=== PATIENT | male | born 1965 | race American Indian/Alaskan Native ===

== ENCOUNTER 2017-11-01 11:22 | Emergency (ER) | payer BC, OTHER ==
--- NOTE | 2017-11-01 12:20 | EDM.PDOC ---
ED HPI GENERAL MEDICAL PROBLEM - General Chief Complaint: Back Pain or Injury Stated Complaint: BACK PAIN AND LEG WEAKNESS Time Seen by Provider: 11/01/17 11:49 Source of Information: Reports: Patient History Limitations: Reports: No Limitations - History of Present Illness INITIAL COMMENTS - FREE TEXT/NARRATIVE: 52-year-old male arrives via private vehicle for evaluation and treatment of several different complaints. patient reports edema to the bilateral lower legs. States the right is worse than the left. He is on Lasix but takes them intermittently when it is not interfering with life events. He reports a couple days ago his calves were tight. He states that his pants are much tighter than normal. He was seen in the [facility] yesterday. Given Lasix and potassium and monitor the ER and sent home. He took 80 mg of Lasix on Wednesday. He denies any chest pain or shortness of breath. Hospitalized about one year ago as for heart failure. Reports he frequently has exacerbations of heart failure and low potassium. Patient reports he's had chronic back pain for at least the last 17 years. He has a history of back spasms. He states this pain is different. Reports that it starts in his hips and travels into his buttocks do his low back and then up his back. He is reporting some numbness and tingling in his toes and the balls of his feet. He denies any saddle anesthesia. Reports that over the weekend he has developed bowel incontinence, one episode Wednesday and one episode this am. Reports he has had urinary incontinance for years. Always has the urge to urinate. He denies any new or recent trauma. Initial injury to his low back was falling off his horse about 17 years ago. He states that his legs feel weak and he cannot lift them. He was previously on tramadol for his pain. Reports pain with walking his legs and his back. Lower Back Pain Score (Numeric/FACES): 9 - Related Data Allergies Allergy/AdvReac Type Severity Reaction Status Date / Time Penicillins Allergy Cannot Verified 11/01/17 11:37 Remember Home Meds: Home Meds Acetaminophen/HYDROcodone [[place] 325-5 MG] 1 tab PO Q6H PRN #20 tablet 11/01/17 [Rx] Past Medical History HEENT History: Reports: Impaired Vision Cardiovascular History: Reports: CO, Stents Musculoskeletal History: Reports: Arthritis Social & Family History - Tobacco Use Smoking Status *Q: Current Every Day Smoker Years of Tobacco use: 25 Packs/Tins Daily: 0.1 - Caffeine Use Caffeine Use: Reports: Coffee - Recreational Drug Use Recreational Drug Use: No ED ROS GENERAL - Review of Systems Review Of Systems: See Below Respiratory: Denies: Shortness of Breath Cardiovascular: Reports: Edema. Denies: Chest Pain GI/Abdominal: Reports: Stool Incontinence. Denies: Abdominal Pain : Reports: Incontinence Musculoskeletal: Reports: Back Pain, Leg Pain (bilateral) Neurological: Reports: Numbness (bilateral toes), Tingling (bilateral toes), Difficulty Walking (due to pain in legs and back), Weakness (bilateral leg weakness) ED EXAM,LOWER BACK PAIN/INJURY - Physical Exam Exam: See Below Exam Limited By: No Limitations General Appearance: Alert, WD/WN, No Apparent Distress, Obese Ears: Normal External Exam Nose: Normal Inspection Throat/Mouth: Normal Inspection, Normal Voice, No Airway Compromise Respiratory/Chest: No Respiratory Distress, Lungs Clear, Normal Breath Sounds Cardiovascular: Normal Peripheral Pulses, Regular Rate, Rhythm, No Murmur Rectal (Males) Exam: Normal Exam, Normal Rectal Tone. No: Hemorrhoids Back Exam: Normal Inspection, Vertebral Tenderness (L5/sacrum). No: Muscle Spasm, Paraspinal Tenderness Extremities: Normal Inspection, Normal Range of Motion (able to internally and externally rotate hips; able to flex hips to about 130 degrees), Other ( bilateral nonpitting edema 2+) Neurological: Alert, Normal Mood/Affect, Normal Dorsiflexion, Normal Plantar Flexion, Other (hip flexion 4.5/5 bilaterally, dorsiflexion and plantar flexion 5/5 bilaterally). No: Straight Leg Raise (L), Straight Leg Raise (R), Saddle Anesthesia Psychiatric: Normal Affect, Normal Mood Skin Exam: Warm, Dry, Normal Color Course - Vital Signs Last Recorded V/S: Last Vital Signs Temp 98.0 F 11/01/17 11:32 Pulse 89 11/01/17 11:32 Resp 16 11/01/17 11:32 BP 125/78 11/01/17 11:32 Pulse Ox - Orders/Labs/Meds Labs: Laboratory Tests 11/01/17 11/01/17 11/01/17 Range/Units 12:29 12:29 12:29 WBC 7.22 (4.23-9.07) K/mm3 RBC 4.44 L (4.63-6.08) M/mm3 Hgb 13.6 L (13.7-17.5) gm/L Hct 39.9 L (40.1-51.0) % MCV 89.9 (79.0-92.2) fl MCH 30.6 (25.7-32.2) pg MCHC 34.1 (32.2-35.5) g/dl RDW Std Deviation 46.2 H (35.1-43.9) fL Plt Count 173 (163-337) K/mm3 MPV 10.1 (9.4-12.3) fl Neut % (Auto) 58.8 (34.0-67.9) % Lymph % (Auto) 30.5 (21.8-53.1) % [place] % (Auto) 7.3 (5.3-12.2) % Eos % (Auto) 2.5 (0.8-7.0) Baso % (Auto) 0.6 (0.1-1.2) % Neut # (Auto) 4.25 (1.78-5.38) K/mm3 Lymph # (Auto) 2.20 (1.32-3.57) K/mm3 [place] # (Auto) 0.53 (0.30-0.82) K/mm3 Eos # (Auto) 0.18 (0.04-0.54) K/mm3 Baso # (Auto) 0.04 (0.01-0.08) K/mm3 Sodium 137 (136-145) mEq/L Potassium 2.7 L (3.5-5.1) mEq/L Chloride 97 L (98-107) mEq/L Carbon Dioxide 30 (21-32) mEq/L Anion Gap 12.7 (5-15) BUN 23 H (7-18) mg/dL Creatinine 1.1 (0.7-1.3) mg/dL Est Cr Clr Drug Dosing TNP Estimated GFR (MDRD) > 60 (>60) mL/min BUN/Creatinine Ratio 20.9 H (14-18) Glucose 160 H (74-106) mg/dL Calcium 9.3 (8.5-10.1) mg/dL Total Bilirubin 1.1 H (0.2-1.0) mg/dL AST 40 H (15-37) U/L ALT 53 (16-63) U/L Alkaline Phosphatase 88 (46-116) U/L NT-Pro-B Natriuret Pep 19 (0-125) pg/mL Total Protein 7.7 (6.4-8.2) g/dl Albumin 3.7 (3.4-5.0) g/dl Globulin 4.0 gm/dL Albumin/Globulin Ratio 0.9 L (1-2) Meds: Medications Discontinued Medications Generic Name Dose Route Start Last Admin Trade Name Freq PRN Reason Stop Dose Admin Potassium Chloride 40 meq 11/01/17 13:41 11/01/17 14:04 Klor-Con M20 PO 11/01/17 13:42 40 meq ONETIME ONE Administration - Radiology Interpretation Free Text/Narrative:: Chest: Portable view of the chest was obtained. Comparison: No prior study. Minimal scar or atelectasis seen within the left base. Lungs otherwise are clear. Heart size is normal. Tortuous thoracic aorta is seen. Degenerative endplate spurring is scattered within the spine. Impression: 1. Incidental findings. Nothing acute is seen Bilateral lower extremity deep venous ultrasound: Duplex and color flow imaging was obtained of the right and left common femoral, proximal greater saphenous, superficial femoral, popliteal, posterior tibial and peroneal veins. Findings: Normal phasic flow, augmentation and compression is seen. Impression: 1. No evidence of deep venous thrombosis within either the right or left lower extremity. - Re-Assessments/Exams Free Text/Narrative Re-Assessment/Exam: 11/01/17 14:29 Reviewed the labs and imaging with the patient. Low back pain is chronic. No saddle anesthesia. Good rectal tone. Cauda equina syndrome felt to be very unlikely. We will get us MRI of his low back as an outpatient. Order has been placed and he can follow-up with his primary care provider for results of these. He should also follow up with his primary care to recheck his potassium. Discharge instructions as documented. Departure - Departure Time of Disposition: 14:34 Disposition: Home, Self-Care 01 Condition: Fair Clinical Impression: Low back pain, Hypokalemia, Edema - Discharge Information *PRESCRIPTION DRUG MONITORING PROGRAM REVIEWED*: Yes (1 Rx last year, 1 Rx for tramadol 50mg #01 July 2017) *COPY OF PRESCRIPTION DRUG MONITORING REPORT IN PATIENT NEO: No Prescriptions: Acetaminophen/HYDROcodone [[place] 325-5 MG] 1 tab PO Q6H PRN #20 tablet PRN Reason: Pain Instructions: Edema, Hypokalemia Referrals: PCP,Not In Area [Primary Care Provider] - Asha Alex NP [Ordering Only Provider] - Forms: ED Department Discharge Additional Instructions: [id number] ibuprofen as needed for pain relief. Do not make take more than 3200 mg of ibuprofen from all sources in 1 day. For pain not relieved by ibuprofen you may take [place] one or 2 tabs every 6 hours. [place] as habit-forming , take as few of these as needed to control your pain. Do not drive or operate machinery within 12 hours of taking [place]. An outpatient order has been placed for you to have an MRI of your lumbar spine Please call [phone] and ask for the radiology department to schedule this. Follow-up with your primary care provider after the MRI to review results as well as repeat your potassium. Continue taking your potassium pills as prescribed. Also recommend increasing potassium in your diet. Recommend high potassium foods such as bananas, avocados , almonds, nuts and beans. Continue taking the gabapentin as prescribed. Please return to the ER should your symptoms change or worsen.
[2017-11-01] MEDS ORDERED: Potassium Chloride 20 MEQ Tab.ER PO ONE (13:41)
--- NOTE | 2017-11-01 14:19 | US ---
Bilateral lower extremity deep venous ultrasound: Duplex and color flow imaging was obtained of the right and left common femoral, proximal greater saphenous, superficial femoral, popliteal, posterior tibial and peroneal veins. Findings: Normal phasic flow, augmentation and compression is seen. Impression: 1. No evidence of deep venous thrombosis within either the right or left lower extremity. Diagnostic code #1
--- NOTE | 2017-11-01 14:51 | CR ---
Chest: Portable view of the chest was obtained. Comparison: No prior study. Minimal scar or atelectasis seen within the left base. Lungs otherwise are clear. Heart size is normal. Tortuous thoracic aorta is seen. Degenerative endplate spurring is scattered within the spine. Impression: 1. Incidental findings. Nothing acute is seen. Diagnostic code #2
== END 2017-11-01 14:50 | disposition home or self-care (01) ==
LOC: JD.ED 11:22
DX: M54.5 Low back pain (principal); E87.6 Hypokalemia; R60.0 Localized edema; F17.210 Nicotine dependence, cigarettes, uncomplicated
CPT/HCPCS: 36415; 71045; 80053; 83880; 85025; 93970; 99284; A9270